=== PATIENT | female | born 1955 | race Native Hawaiian/Other Pacific Islander ===

== ENCOUNTER 2022-09-16 20:35 | Emergency (ER) | payer OTHER ==
[~2022-09-16] VITALS: Ht 149.9 cm; Wt 44.9 kg
[2022-09-16 20:41] VITALS: TEMP 98.5
[2022-09-16 21:50] VITALS: BP 153/72
== END 2022-09-16 21:50 | disposition home or self-care (01) ==
LOC: ED 20:35
PROC: 2W3DX1Z Immobilization of Left Lower Arm using Splint (ICD-10-PCS; principal; 2022-09-16)
DX: S62.102A Fracture of unspecified carpal bone, left wrist, initial encounter for closed fracture (principal); M25.532 Pain in left wrist; W19.XXXA Unspecified fall, initial encounter
CPT/HCPCS: 96372; 99283; J2270; J2405